=== PATIENT | male | born 1995 | race American Indian/Alaskan Native ===

== ENCOUNTER 2019-04-17 16:51 | Emergency (ER) | payer SELFPAY ==
[2019-04-17 17:33] VITALS: BP 124/70
--- NOTE | 2019-04-17 17:35 | Event Note ---
ED Screening Note Date of service: 04/17/19 Time: 17:34 ED Screening Note: 24 y/o male comes in for right knee pain times 2 weeks. This initial assessment/diagnostic orders/clinical plan/treatment(s) is/are subject to change based on patients health status, clinical progression and re-assessment by fellow clinical providers in the ED. Further treatment and workup at subsequent clinical providers discretion. Patient/guardian urged not to elope from the ED as their condition may be serious if not clinically assessed and managed. Initial orders include:
--- NOTE | 2019-04-17 18:11 | XRay Report ---
Right knee 3 views INDICATION: Right knee pain. IMPRESSION: Tiny right knee effusion. Prior ACL reconstruction noted. No fracture. Signer Name: Rivas Velazquez MD Signed: 04/17/2019 6:06 PM Workstation Name: [id number]
[2019-04-17] MEDS ORDERED: TORADOL IM ONE (19:30)
--- NOTE | 2019-04-17 19:46 | Emergency Department Report ---
ED Lower Extremity HPI - General Chief Complaint: Extremity Injury, Lower Stated Complaint: RT KNEE PAIN (ACL) Time Seen by Provider: 04/17/19 17:34 Source: patient Mode of arrival: Ambulatory Limitations: No Limitations - History of Present Illness Initial Comments: The patient is a 24-year-old male who presents for right anterior knee pain history of anterior cruciate ligament repair to same 2 years ago patient denies new fall injury or trauma describes pain as aching 4/10 exacerbated by prolonged standing walking and bending however patient is ambulatory to baseline without without limpMD Complaint: knee injury Onset/Timin -: week(s) Injury: Knee: Right Type of Injury: unknown Place: home Severity: moderate Severity scale (0 -10): 5 Improves With: rest Worsens With: weight bearing, movement, palpation Other Symptoms: loss of consciousness Associated Symptoms: ambulatory. denies: snap/pop sensation, swelling, numbness, tingling - Related Data Previous Rx's Medication Instructions Recorded Last Taken Type Cyclobenzaprine [Flexeril] 10 mg PO TID #30 tablet 04/17/19 Unknown Rx Menthol/Camphor [[place] 1 applicatio TP QID PRN #1 tube 04/17/19 Unknown Rx Ointment] Naproxen [Naprosyn TAB] 500 mg PO BID PRN #30 tablet 04/17/19 Unknown Rx predniSONE [Deltasone] 40 mg PO QDAY 5 Days #10 tab 04/17/19 Unknown Rx Allergies Allergy/AdvReac Type Severity Reaction Status Date / Time Penicillins Allergy Hives Verified 04/17/19 17:07 ED Review of Systems ROS: Stated complaint: RT KNEE PAIN (ACL) Other details as noted in HPI Constitutional: denies: chills, fever Eyes: denies: eye pain, eye discharge, vision change ENT: denies: ear pain, throat pain Respiratory: denies: cough, shortness of breath, wheezing Cardiovascular: denies: chest pain, palpitations Endocrine: no symptoms reported Gastrointestinal: denies: abdominal pain, nausea, diarrhea Genitourinary: as per HPI Musculoskeletal: other (knee pain ). denies: back pain, joint swelling, arthralgia, myalgia Skin: as per HPI Neurological: denies: headache, weakness, paresthesias Psychiatric: denies: anxiety, depression Hematological/Lymphatic: as per HPI ED Past Medical Hx - Past Medical History Previous Medical History?: No - Surgical History Past Surgical History?: Yes Additional Surgical History: RT ACL SURGERY - Social History Smoking Status: Current Every Day Smoker Substance Use Type: Marijuana - Medications Home Medications: Home Medications Medication Instructions Recorded Confirmed Last Taken Type Cyclobenzaprine [Flexeril] 10 mg PO TID #30 tablet 04/17/19 Unknown Rx Menthol/Camphor [[place] 1 applicatio TP QID PRN #1 tube 04/17/19 Unknown Rx Ointment] Naproxen [Naprosyn TAB] 500 mg PO BID PRN #30 tablet 04/17/19 Unknown Rx predniSONE [Deltasone] 40 mg PO QDAY 5 Days #10 tab 04/17/19 Unknown Rx ED Physical Exam - General Limitations: No Limitations General appearance: alert, in no apparent distress - Head Head exam: Present: atraumatic, normocephalic - Eye Eye exam: Present: normal appearance, PERRL, EOMI Pupils: Present: normal accommodation - ENT ENT exam: Present: mucous membranes moist - Neck Neck exam: Present: normal inspection, full ROM. Absent: tenderness - Respiratory Respiratory exam: Present: normal lung sounds bilaterally. Absent: respiratory distress, stridor, chest wall tenderness - Cardiovascular Cardiovascular Exam: Present: regular rate, normal rhythm, normal heart sounds. Absent: systolic murmur, diastolic murmur, rubs, gallop - GI/Abdominal GI/Abdominal exam: Present: soft, normal bowel sounds. Absent: bruit, hernia - Rectal Rectal exam: Present: deferred - Extremities Exam Extremities exam: Present: normal inspection, full ROM, tenderness (right medial knee pain and [place] tenderness no swelling no echymosis no palpable effusion), normal capillary refill. Absent: pedal edema, joint swelling, calf tenderness - Expanded Lower Extremity Exam Right Knee exam: Present: full ROM, tenderness, pain w/ pronation/supination, full knee extension. Absent: swelling, abrasion, laceration, ecchymosis, deformity, crepidus, dislocation, erythema, effusion, posterior draw sign, pain/laxity with valgus, pain/laxity with varus Lower Leg exam: Present: full ROM. Absent: tenderness Ankle exam: Present: full ROM. Absent: tenderness Foot/Toe exam: Present: full ROM. Absent: tenderness, swelling Neuro vascular tendon exam: Absent: pulse deficit, motor deficit, sensory deficit, tendon deficit Gait: Positive: observed and normal - Back Exam Back exam: Present: normal inspection, full ROM. Absent: tenderness, CVA tenderness (R), CVA tenderness (L), muscle spasm, paraspinal tenderness, vertebral tenderness, rash noted - Neurological Exam Neurological exam: Present: alert, oriented X3, CN II-XII intact, normal gait, reflexes normal. Absent: motor sensory deficit - Psychiatric Psychiatric exam: Present: normal affect, normal mood - Skin Skin exam: Present: warm, dry, intact, normal color. Absent: rash ED Course Vital Signs 04/17/19 04/17/19 17:32 19:39 Temperature 99.1 F Pulse Rate 66 Respiratory 18 16 Rate Blood Pressure 124/70 O2 Sat by Pulse 99 Oximetry ED Lower Extremity MDM - Radiology Data Radiology results: report reviewed, image reviewed Ordering Physician: KATIA GANN Date of Service: 04/17/19 Procedure(s): XR knee 3V RT Accession Number(s): [id number] cc: KATIA GANN Fluoro Time In Minutes: Right knee 3 views INDICATION: Right knee pain. IMPRESSION: Tiny right knee effusion. Prior ACL reconstruction noted. No fracture. Signer Name: Rivas Velazquez MD Signed: 04/17/2019 6:06 PM Workstation Name: [id number] Transcribed By: Dictated By: Rivas Velazquez MD Electronically Authenticated By: Rivas Velazquez MD Signed Date/Time: 04/17/191805 DD/ 05 TD/TT: - Medical Decision Making this is a small knee effusion , no frature no soft tissue abnormality, plan nsaids muscle relaxants analgesic balm steriod follow up with orthopedics in 2-3 days. Critical care attestation.: If time is entered above; I have spent that time in minutes in the direct care of this critically ill patient, excluding procedure time. ED Disposition Clinical Impression: Knee effusion, right Chronic knee pain Qualifiers: Laterality: right Qualified Code(s): M25.561 - Pain in right knee; G89.29 - Other chronic pain Disposition: - TO HOME OR SELFCARE Is pt being admited?: No Does the pt Need Aspirin: No Condition: Stable Instructions: Knee Effusion (ED), Knee Exercises (GEN) Prescriptions: predniSONE [Deltasone] 40 mg PO QDAY 5 Days #10 tab Cyclobenzaprine [Flexeril] 10 mg PO TID #30 tablet Naproxen [Naprosyn TAB] 500 mg PO BID PRN #30 tablet PRN Reason: Pain , Severe (7-10) Menthol/Camphor [[place] Ointment] 1 applicatio TP QID PRN #1 tube PRN Reason: pain Referrals: RIC SINGH MD [Staff Physician] - 3-5 Days Forms: Work/School Release Form(ED) Time of Disposition: 19:51
== END 2019-04-17 20:11 | disposition home or self-care (01) ==
LOC: ED 16:51
DX: M25.461 Effusion, right knee (principal); M25.561 Pain in right knee; G89.29 Other chronic pain; F17.200 Nicotine dependence, unspecified, uncomplicated; F12.10 Cannabis abuse, uncomplicated; Z79.899 Other long term (current) drug therapy; Z88.0 Allergy status to penicillin
CPT/HCPCS: 73562; 96372; 99283; J1885

== ENCOUNTER 2019-05-17 12:18 | Emergency (ER) | payer SELFPAY ==
[2019-05-17 12:29] VITALS: BP 124/72
--- NOTE | 2019-05-17 12:31 | Emergency Department Report ---
Blank Doc - Documentation Documentation: 24-year-old male that presents with right tib-fib pain. This initial assessment/diagnostic orders/clinical plan/treatment(s) is/are subject to change based on patient's health status, clinical progression and re- assessment by fellow clinical providers in the ED. Further treatment and workup at subsequent clinical providers discretion. Patient/guardians urged not to elope from the ED as their condition may be serious if not clinically assessed and managed. Initial orders include: 1- Patient sent to [facility] for further evaluation and treatment 2- xray
--- NOTE | 2019-05-17 13:17 | XRay Report ---
Right tibia and fibula, 2 views INDICATION: Right tibia and fibula pain. COMPARISON: None. IMPRESSION: Normal bone mineralization. No acute osseous abnormality is identified. Previous ACL rep air changes are suspected, correlate with history. There is focal anterior soft tissue swelling near the insertion site of the patellar tendon which is of uncertain etiology. There is also mild distal lateral soft tissue swelling. Signer Name: Olegario Hernandez Jr, MD Signed: 05/17/2019 1:13 PM Workstation Name: [id number]
[2019-05-17] MEDS ORDERED: IBUPROFEN PO ONE (13:26)
--- NOTE | 2019-05-17 13:26 | Emergency Department Report ---
ED Back Pain/Injury HPI - General Chief Complaint: Extremity Injury, Lower Stated Complaint: KNEE PAIN Time Seen by Provider: 05/17/19 12:27 Source: patient Limitations: No Limitations - Related Data Previous Rx's Medication Instructions Recorded Last Taken Type Cyclobenzaprine [Flexeril] 10 mg PO TID #30 tablet 04/17/19 Unknown Rx Menthol/Camphor [[place] 1 applicatio TP QID PRN #1 tube 04/17/19 Unknown Rx Ointment] Naproxen [Naprosyn TAB] 500 mg PO BID PRN #30 tablet 04/17/19 Unknown Rx predniSONE [Deltasone] 40 mg PO QDAY 5 Days #10 tab 04/17/19 Unknown Rx Ibuprofen [Motrin] 800 mg PO Q8HR PRN #30 tablet 05/17/19 Unknown Rx Allergies Allergy/AdvReac Type Severity Reaction Status Date / Time Penicillins Allergy Hives Verified 05/17/19 12:21 ED Review of Systems ROS: Stated complaint: KNEE PAIN Other details as noted in HPI Comment: All other systems reviewed and negative ED Back Pain Physical Exam - Exam General: Vital signs noted. No distress. Alert and acting appropriately. Back/Abdomen: No Abdominal Tenderness, No Perithoracic Tenderness Neuro: Yes Normal Sensation, Yes Normal DTR's, Yes Normal Gait, No Motor We akness ED Course Vital Signs 05/17/19 12:27 Temperature 98 F Pulse Rate 56 L Respiratory 18 Rate Blood Pressure 124/72 O2 Sat by Pulse 97 Oximetry Ed Back Pain Tests - Tests Tests: Normal X Rays ED Medical Decision Making - Radiology Data Radiology results: report reviewed, image reviewed Critical care attestation.: If time is entered above; I have spent that time in minutes in the direct care of this critically ill patient, excluding procedure time. ED Disposition Clinical Impression: Knee pain, History of knee surgery Disposition: - TO HOME OR SELFCARE Is pt being admited?: No Does the pt Need Aspirin: No Condition: Stable Instructions: Knee Pain (ED) Additional Instructions: crutches elevate allow the knee to rest med as ordered today FOLLOW UP WITH ORTHO MD REFERRAL BELOW Referrals: RIC SINGH MD [Staff Physician] - 3-5 Days Time of Disposition: 13:28
== END 2019-05-17 14:09 | disposition home or self-care (01) ==
LOC: ED 12:18
DX: M25.561 Pain in right knee (principal); Z98.890 Other specified postprocedural states; Z79.899 Other long term (current) drug therapy; Z88.0 Allergy status to penicillin

== ENCOUNTER 2020-04-21 01:47 | Emergency (ER) | payer SELFPAY ==
[2020-04-21 02:28] VITALS: BP 140/79
--- NOTE | 2020-04-21 03:33 | XRay Report ---
EXAMINATION: Right knee radiograph series, 3 views CLINICAL INFORMATION: Right knee pain COMPARISON: Right knee radiograph, 04/17/2019 FINDINGS: The patient was unable to extend the knee for complete evaluation. There is no evidence of acute fracture. Postsurgical changes from previous ACL reconstruction noted. A joint effusion is pres ent. There is generalized soft tissue edema noted. Signer Name: Alayna Pink MD Signed: 04/21/2020 3:29 AM Workstation Name: [id number]
[2020-04-21] MEDS ORDERED: IBUPROFEN 600 MG TAB PO ONE (05:18)
[2020-04-21] MEDS ORDERED: HYDROcodone/ACETAMINOPHEN 7.5-325MG TAB PO ONE (05:18)
--- NOTE | 2020-04-21 05:21 | Emergency Department Report ---
ED Lower Extremity HPI - General Chief Complaint: Extremity Injury, Lower Stated Complaint: RT LEG INJURY Time Seen by Provider: 04/21/20 05:17 Source: patient Mode of arrival: Ambulatory Limitations: No Limitations - History of Present Illness Initial Comments: 25-year-old -[place] male presents to the emergency room for right knee pain. Patient states he was playing basketball yesterday when he heard something pop in his knee. Patient has a history of ACL repair with a right meniscus repair. Patient has an allergy to penicillin takes no medications on a daily basis. Patient reports he has had 2 ACL repairs on the same knee. MD Complaint: knee injury Onset/Timin -: days(s) Injury: Knee: Right Place: street/outdoors Severity: severe Severity scale (0 -10): 10 Improves With: nothing Worsens With: weight bearing, movement Associated Symptoms: snap/pop sensation, swelling, unable to bear weight - Related Data Previous Rx's Medication Instructions Recorded Last Taken Type Cyclobenzaprine [Flexeril] 10 mg PO TID #30 tablet 04/17/19 Unknown Rx Menthol/Camphor [[place] 1 applicatio TP QID PRN #1 tube 04/17/19 Unknown Rx Ointment] Naproxen [Naprosyn TAB] 500 mg PO BID PRN #30 tablet 04/17/19 Unknown Rx predniSONE [Deltasone] 40 mg PO QDAY 5 Days #10 tab 04/17/19 Unknown Rx Ibuprofen [Motrin] 800 mg PO Q8HR PRN #30 tablet 05/17/19 Unknown Rx Ibuprofen [Motrin 800 MG tab] 800 mg PO Q8HR PRN #30 tablet 04/21/20 Unknown Rx Allergies Allergy/AdvReac Type Severity Reaction Status Date / Time Penicillins Allergy Hives Verified 05/17/19 12:21 ED Review of Systems ROS: Stated complaint: RT LEG INJURY Other details as noted in HPI ED Past Medical Hx - Past Medical History Previous Medical History?: No - Surgical History Past Surgical History?: Yes Additional Surgical History: RT ACL SURGERY, Right Meniscus - Social History Smoking Status: Current Every Day Smoker Substance Use Type: Marijuana - Medications Home Medications: Home Medications Medication Instructions Recorded Confirmed Last Taken Type Cyclobenzaprine [Flexeril] 10 mg PO TID #30 tablet 04/17/19 Unknown Rx Menthol/Camphor [[place] 1 applicatio TP QID PRN #1 tube 04/17/19 Unknown Rx Ointment] Naproxen [Naprosyn TAB] 500 mg PO BID PRN #30 tablet 04/17/19 Unknown Rx predniSONE [Deltasone] 40 mg PO QDAY 5 Days #10 tab 04/17/19 Unknown Rx Ibuprofen [Motrin] 800 mg PO Q8HR PRN #30 tablet 05/17/19 Unknown Rx Ibuprofen [Motrin 800 MG tab] 800 mg PO Q8HR PRN #30 tablet 04/21/20 Unknown Rx ED Physical Exam - General Limitations: No Limitations General appearance: alert - Head Head exam: Present: atraumatic, normocephalic - Eye Eye exam: Present: normal appearance - ENT ENT exam: Present: mucous membranes moist - Neck Neck exam: Present: normal inspection, full ROM - Expanded Lower Extremity Exam Right Hip exam: Present: normal inspection, full ROM Upper Leg exam: Present: normal inspection, full ROM Knee exam: Present: tenderness, swelling. Absent: full ROM, deformity Lower Leg exam: Present: normal inspection Ankle exam: Present: normal inspection Foot/Toe exam: Present: normal inspection Neuro vascular tendon exam: Present: no vascular compromise - Back Exam Back exam: Present: normal inspection - Neurological Exam Neurological exam: Present: alert, oriented X3 - Psychiatric Psychiatric exam: Present: normal affect, normal mood - Skin Skin exam: Present: warm, dry, intact, normal color. Absent: rash ED Course Vital Signs 04/21/20 04/21/20 02:15 06:15 Temperature 99.0 F Pulse Rate 73 85 Respiratory 18 14 Rate Blood Pressure 140/79 O2 Sat by Pulse 98 98 Oximetry ED Lower Extremity MDM - Radiology Data Radiology results: report reviewed Patient: KELSEY MCMAHON MR#: [id number] : 1995 Acct:[id number] Age/Sex: 25 / M ADM Date: 04/21/20 Loc: ED Attending Dr: Ordering Physician: DILAN MAURICIO MD Date of Service: 04/21/20 Procedure(s): XR knee 3V RT Accession Number(s): [id number] cc: DILAN MAURICIO MD Fluoro Time In Minutes: EXAMINATION: Right knee radiograph series, 3 views CLINICAL INFORMATION: Right knee pain COMPARISON: Right knee radiograph, 04/17/2019 FINDINGS: The patient was unable to extend the knee for complete evaluation. There is no evidence of acute fracture. Postsurgical changes from previous ACL reconstruction noted. A joint effusion is present. There is generalized soft tissue edema noted. Signer Name: Alayna Pink MD Signed: 04/21/2020 3:29 AM Workstation Name: [id number] Transcribed By: EB Dictated By: Alayna Pink MD Electronically Authenticated By: Alayna Pink MD Signed Date/Time: 04/21/20328 DD/ 5 TD/TT: - Medical Decision Making 25-year-old -[place] male presents to the emergency room for right knee pain. Patient states he was playing basketball yesterday when he heard something pop in his knee. Patient has a history of ACL repair with a right meniscus repair. Patient has an allergy to penicillin takes no medications on a daily basis. Patient reports he has had 2 ACL repairs on the same knee. X-ray of right knee shows a large effusion. Patient was placed in a knee immobilizer crutches and referral to orthopedic provider. Patient was given ibuprofen and [place] for pain management. Patient be discharged home on ibupro fen 800 mg. Critical care attestation.: If time is entered above; I have spent that time in minutes in the direct care of this critically ill patient, excluding procedure time. ED Disposition Clinical Impression: Right knee injury Disposition: DC-01 TO HOME OR SELFCARE Is pt being admited?: No Does the pt Need Aspirin: No Condition: Stable Instructions: Knee Effusion (ED), Knee Immobilizer (ED) Additional Instructions: Use crutches wear your knee immobilizer take your pain medication and follow-up with an orthopedic provider. Your x-ray shows you have a large knee and fusion. [place] x-ray would be an MRI that can be ordered through your orthopedic provider. Prescriptions: Ibuprofen [Motrin 800 MG tab] 800 mg PO Q8HR PRN #30 tablet PRN Reason: Pain , Severe (7-10) Referrals: PRIMARY CARE, [Primary Care Provider] - 3-5 Days FER GARCIA MD [Staff Physician] - 3-5 Days RIC SINGH MD [Staff Physician] - 3-5 Days Forms: Work/School Release Form(ED)
== END 2020-04-21 06:15 | disposition home or self-care (01) ==
LOC: ED 01:47
DX: S89.91XA Unspecified injury of right lower leg, initial encounter (principal); F17.200 Nicotine dependence, unspecified, uncomplicated; F12.10 Cannabis abuse, uncomplicated; W21.05XA Struck by basketball, initial encounter; Y93.89 Activity, other specified; Y92.89 Other specified places as the place of occurrence of the external cause; Y99.8 Other external cause status